=== PATIENT | male | born 2000 | race Caucasian/White ===

== ENCOUNTER 2025-04-15 21:48 | Emergency (ER) | payer MEDICAID ==
[~2025-04-15] VITALS: Ht 182.9 cm; Wt 90.0 kg
[2025-04-15 21:53] VITALS: O2SAT 96
[2025-04-15 22:33] VITALS: BP 97/54; PULSE 83; RESP 16; TEMP 36.9; O2SAT 100
[2025-04-15] MEDS: BUPRENORPHINE 8MG SL TABLET SL ONE (23:12)
== END 2025-04-15 23:40 | disposition home or self-care (01) ==
LOC: ER 21:48
DX: F11.10 Opioid abuse, uncomplicated (principal); Z76.0 Encounter for issue of repeat prescription
CPT/HCPCS: 99283; Z7610